=== PATIENT | female | born 1980 | race Caucasian/White ===

== ENCOUNTER 2019-06-22 08:46 | Outpatient (CLI) | payer OTHER, SELFPAY ==
--- NOTE | 2019-06-22 08:55 | US_ITS ---
WS: [id number] INDICATION: Soft tissue ultrasound right axilla TECHNIQUE: Ultrasound soft tissue FINDINGS: Ultrasound soft tissue right axilla concern. Area of palpable abnormality evaluated. No margie dence of pathologic mass or lesion. No drainable fluid collections. No lesions to target for biopsy. Normal appearing subcutaneous tissue and underlying muscle. US/US soft tissue/extremity [id number] IMPRESSION: Normal soft tissue ultrasound
== END 2019-06-22 08:47 | disposition home or self-care (01) ==
PROVIDERS: Family Provider Family Medicine; PCP Family Medicine; Visit Provider Family Medicine
DX: R22.31 Localized swelling, mass and lump, right upper limb (principal)
CPT/HCPCS: 76882

== ENCOUNTER 2019-06-22 12:00 | Outpatient (CLI) | payer OTHER, SELFPAY | END 2019-06-22 12:01 | disposition home or self-care (01) | LOC: SLEEP 06-23 10:22 | PROVIDERS: Family Provider Family Medicine; PCP Family Medicine; Visit Provider Family Medicine | DX: G47.33 Obstructive sleep apnea (adult) (pediatric) (principal) | CPT/HCPCS: G0399 ==

== ENCOUNTER → 2020-07-12 14:38 | Outpatient (BNVA) | payer OTHER, SELFPAY | PROVIDERS: Family Provider Family Medicine; PCP Family Medicine; Visit Provider Nurse Practitioner Family | DX: J02.9 Acute pharyngitis, unspecified (principal); R50.9 Fever, unspecified; J06.9 Acute upper respiratory infection, unspecified | CPT/HCPCS: 87071; 87400; 87880 ==

== ENCOUNTER → 2020-09-01 11:15 | Outpatient (BNVA) | payer OTHER, SELFPAY | PROVIDERS: Family Provider Family Medicine; PCP Family Medicine; Visit Provider Nurse Practitioner Women's Health | DX: Z01.419 Encounter for gynecological examination (general) (routine) without abnormal findings (principal) | CPT/HCPCS: 88175 ==

== ENCOUNTER 2020-09-08 13:30 | Outpatient (CLI) | payer OTHER, SELFPAY ==
--- NOTE | 2020-09-08 14:00 | MM_ITS ---
WS: [id number] BILATERAL DIGITAL DIAGNOSTIC MAMMOGRAM MAMMOGRAPHY WITH CAD CLINICAL INFORMATION: N63.10 - Unspecified lump in the right breast, unspecified quadrant COMPARISON: Prior soft tissue ultrasound June 22, 2019 TECHNIQUE: Bilateral CC, MLO, and ML views. FINDINGS: The breasts are composed of heterogeneous fibroglandular density, which can limit the detection of sm all underlying mass lesions. Palpable marker in the right axilla. No underlying mammographic abnormal ities. Ultrasound demonstrates normal subcutaneous and muscle tissue in this area. No suspicious lesi ons. No lesions to target for biopsy. No suspicious focal mass, asymmetry, calcifications, or architectural distortion. No evidence of renetta gnancy. MM/[place] [id number] IMPRESSION: BI-RADS: 2-Benign FOLLOW UP: 1 Year Follow-up Recommend annual screening mammography.
--- NOTE | 2020-09-08 15:00 | US_ITS ---
WS: [id number] INDICATION: Right axilla TECHNIQUE: Ultrasound right axilla area of concern. FINDINGS: Comparison June 22, 2019 Ultrasound right axilla area of concern. No evidence of pathologic mass or subcutaneous lesion. No cy stic or solid lesions or fluid collections. No lesions to target for biopsy. Normal underlying subcut aneous soft tissues and underlying musculature. Ultrasound findings are similar to previous June 092019 without significant change. US/US soft tissue/extremity [id number] IMPRESSION: Normal soft tissue ultrasound in the area of concern.
== END 2020-09-08 13:31 | disposition home or self-care (01) ==
LOC: RADSHAW 13:33
PROVIDERS: Family Provider Family Medicine; PCP Family Medicine; Visit Provider Nurse Practitioner Women's Health
DX: N63.10 Unspecified lump in the right breast, unspecified quadrant (principal); R22.31 Localized swelling, mass and lump, right upper limb
CPT/HCPCS: 76642; 76882; 77066

== ENCOUNTER → 2020-10-27 10:11 | Outpatient (BNVA) | payer OTHER, SELFPAY | PROVIDERS: Family Provider Family Medicine; PCP Family Medicine; Visit Provider Surgery | DX: Z01.812 Encounter for preprocedural laboratory examination (principal); Z20.822 Contact with and (suspected) exposure to COVID-19 | CPT/HCPCS: 87635 ==

== ENCOUNTER → 2021-01-04 13:35 | Outpatient (BNVA) | payer OTHER, SELFPAY | PROVIDERS: Family Provider Family Medicine; PCP Family Medicine; Visit Provider Surgery | DX: Z01.812 Encounter for preprocedural laboratory examination (principal); Z20.822 Contact with and (suspected) exposure to COVID-19 | CPT/HCPCS: 87635 ==

== ENCOUNTER 2023-03-14 10:20 | Outpatient (CLI) | payer OTHER, SELFPAY ==
--- NOTE | 2023-03-14 10:24 | MM_ITS ---
WS: [id number] BILATERAL SCREENING DIGITAL TOMOSYNTHESIS MAMMOGRAM WITH CAD HISTORY: Z12.31 - Encounter for screening mammogram for malignant ... COMPARISON: None available. Bilateral CC and MLO views with tomosynthesis and synthetic mammography submitted. Computer aided det ection analyzed. Breast composition: There are scattered areas of fibroglandular density. No suspicious masses, microc alcifications or architectural distortion. Lymph node in the upper outer quadrant of the LEFT breast. IMPRESSION: MM/[place] [id number] BI-RADS: 2-Benign FOLLOW UP: 1 Year Follow-up
== END 2023-03-14 10:21 | disposition home or self-care (01) ==
PROVIDERS: PCP Family Medicine; Visit Provider Nurse Practitioner Women's Health
DX: Z12.31 Encounter for screening mammogram for malignant neoplasm of breast (principal)
CPT/HCPCS: 77063; 77067

== ENCOUNTER → 2024-02-11 11:07 | Outpatient (BNVA) | payer OTHER, SELFPAY | PROVIDERS: Family Provider Family Medicine; PCP Family Medicine; Visit Provider Nurse Practitioner Women's Health | DX: R53.83 Other fatigue (principal) | CPT/HCPCS: 80053; 82306; 82607; 84439; 84443; 85025 ==

== ENCOUNTER 2024-07-12 12:39 | Outpatient (CLI) | payer OTHER, SELFPAY ==
--- NOTE | 2024-07-12 12:48 | MM_ITS ---
WS: [id number] BILATERAL 3D TOMOSYNTHESIS DIGITAL SCREENING MAMMOGRAPHY WITH CAD CLINICAL INFORMATION: Z12.39 - Encounter for other screening for malignant neop... HISTORY: Screening mammogram. No current complaints. COMPARISON: 2022 TECHNIQUE: Bilateral CC and MLO views. FINDINGS: The breasts are composed of heterogeneous fibroglandular density tissue, which can limit the detectio n of small underlying mass lesions. No suspicious mass, asymmetry, calcifications, or architectural d istortion. No evidence of malignancy. MM/MM [facility] tomosynthesis [id number] IMPRESSION: DENSITY: The breasts are heterogeneously dense, which may obscure small masses. BI-RADS: 1 - Negative FOLLOW UP: 1 Year Follow-up Recommend return to annual screening mammography.
== END 2024-07-12 12:40 | disposition home or self-care (01) ==
PROVIDERS: Family Provider Family Medicine; PCP Family Medicine; Visit Provider Nurse Practitioner Women's Health
DX: Z12.31 Encounter for screening mammogram for malignant neoplasm of breast (principal); R92.333 Mammographic heterogeneous density, bilateral breasts
CPT/HCPCS: 77063; 77067